=== PATIENT | female | born 1975 | race Asian ===

== ENCOUNTER 2019-05-24 16:22 | Outpatient (CLI) | payer OTHER | END 2019-05-24 18:26 | disposition home or self-care (01) | LOC: SRD 16:22 | PROVIDERS: ATTEND Internal Medicine | DX: M17.11 Unilateral primary osteoarthritis, right knee (principal); R22.41 Localized swelling, mass and lump, right lower limb | CPT/HCPCS: 73564 ==

== ENCOUNTER 2022-09-30 10:53 | Emergency (ER) | payer OTHER ==
[~2022-09-30] VITALS: Ht 152.4 cm; Wt 86.2 kg
[2022-09-30 11:08] VITALS: BP_SYST 138
--- NOTE | 2022-09-30 11:18 | NUR ---
ESCORTED TO ROOM 8. ICE PACK APPLIED. REPORT TO PRIMARY RN.
--- NOTE | 2022-09-30 11:20 | NUR ---
PT BIB SELF AWAKE AND ALERT AOX4. NO SOB. PT C/O PAIN 03/31 TO L ANKLE AFTER A MECHANICAL FALL WHILE TAKING OUT THE TRASH AT HOME. PT DENIES N/V/D. PT DENIES KO AND HHITTING HER HEAD. PT ALSO HAS A SCRAPPED R KNEE.
--- NOTE | 2022-09-30 11:22 | NUR ---
MD DR WEBB AT BEDSIDE
[2022-09-30] MEDS ORDERED: BACITRACIN 1 GM OINT TP ONE (11:26)
--- NOTE | 2022-09-30 11:30 | NUR ---
XRAY AT BEDSIDE
[2022-09-30] MEDS ORDERED: TRAM50TA2 PO (11:56)
--- NOTE | 2022-09-30 12:24 | NUR ---
PT LEG WRAP IN SPLINT BY EMT
--- NOTE | 2022-09-30 12:25 | NUR ---
PT GIVEN CRUTCHES, PT TEACHING ADMINISTERED. PT CONFIRMED UNDERSTANDING AND WAS ABLE TO DEMONSTRATE PROPER USAGE OF CRUTCHES.
[2022-09-30 12:31] VITALS: BP_SYST 136
--- NOTE | 2022-09-30 12:32 | NUR ---
Patient given written and verbal discharge instructions and verbalizes understanding. ER MD DR WEBB discussed with patient the results and treatment provided. Patient in stable condition. ID arm band removed. Rx of TRAMODOL given. Patient educated on pain management and to follow up with PMD. Pain Scale 10/10. Opportunity for questions provided and answered. Medication side effect fact sheet provided.
== END 2022-09-30 12:32 | disposition home or self-care (01) ==
LOC: SED 10:53
DX: S82.62XA Displaced fracture of lateral malleolus of left fibula, initial encounter for closed fracture (principal); Z79.899 Other long term (current) drug therapy; W01.0XXA Fall on same level from slipping, tripping and stumbling without subsequent striking against object, initial encounter; Y93.89 Activity, other specified; Y92.89 Other specified places as the place of occurrence of the external cause; Y99.8 Other external cause status
CPT/HCPCS: 99283

== ENCOUNTER 2022-10-15 09:46 | Outpatient (CLI) | payer OTHER ==
[~2022-10-15 09:46] MED LIST: TRAM50TA2 PO
== END 2022-10-15 19:22 | disposition home or self-care (01) ==
LOC: SRD 09:46
PROVIDERS: ATTEND Student in an Organized Health Care Education/Training Program
DX: S82.402A Unspecified fracture of shaft of left fibula, initial encounter for closed fracture (principal); S82.892A Other fracture of left lower leg, initial encounter for closed fracture; M77.32 Calcaneal spur, left foot; M79.89 Other specified soft tissue disorders; X58.XXXA Exposure to other specified factors, initial encounter; Y93.89 Activity, other specified; Y92.89 Other specified places as the place of occurrence of the external cause; Y99.8 Other external cause status

== ENCOUNTER 2022-11-19 12:39 | Outpatient (CLI) | payer OTHER | END 2022-11-19 19:14 | disposition home or self-care (01) | LOC: SRD 12:39 | PROVIDERS: ATTEND Student in an Organized Health Care Education/Training Program | DX: M19.072 Primary osteoarthritis, left ankle and foot (principal); S82.62XD Displaced fracture of lateral malleolus of left fibula, subsequent encounter for closed fracture with routine healing; X58.XXXD Exposure to other specified factors, subsequent encounter ==